=== PATIENT | female | born 1960 | race Caucasian/White ===

== ENCOUNTER 2021-09-07 21:57 | Emergency (ER) | payer OTHER, MEDICAID ==
[~2021-09-07] VITALS: Ht 149.9 cm; Wt 86.2 kg
[2021-09-07] MEDS ORDERED: SODIUM CHLORIDE 0.9% 1,000 ML IV ONE (22:45)
[2021-09-07] MEDS ORDERED: METOCLOPRAMIDE HCL 5MG/ml INJ 2ml VIAL IV ONE (22:45)
[2021-09-07] MEDS ORDERED: MECLIZINE HCL 25 MG TAB PO ONE (22:45)
[2021-09-07 23:25] VITALS: BP 125/75
[2021-09-07 23:33] LABS: Albumin 4.1 g/dL (3.4-5.0); Calcium 9.1 mg/dL (8.5-10.1); Potassium 4.5 mmol/L (3.5-5.1)
[2021-09-07 23:37] LABS: BUN/Creatinine Ratio 25.1; Bilirubin, Total 0.6 mg/dL (0.2-1.0); Total Protein 7.6 g/dL (6.4-8.2)
[2021-09-07 23:51] LABS: Basophils # (auto) 0.1 10 ^3/uL (0-0.2); Eosinophils # (auto) 0 10 ^3/uL (0-0.8); Hemoglobin 12.7 g/dL (12.2-16.2)
[2021-09-07 23:53] LABS: Basophils % (auto) 0.7 % (0.0-2.0); Eosinophils % (auto) 0.2 % (0.0-7.0); Hematocrit 39.2 % (36.0-46.0); Lymphocytes # (auto) 1.1 10 ^3/uL (0.4-5.4); Mean Corpuscular Hemoglobin 26.8 pg (28.0-32.0); Mean Corpuscular Hgb Conc. 32.4 g/dL (32.0-36.0); Mean Corpuscular Volume 82.6 fL (80.0-100.0); Monocytes % (auto) 8.9 % (0.0-12.0); Neutrophils # (auto) 9.6 10 ^3/uL (1.6-8.6); Neutrophils % (auto) 81.2 % (37.0-80.0); Red Blood Cells 4.74 10^6/uL (4.0-5.20); Red Cell Distribution Width 16.3 % (11.8-14.3); White Blood Cell 11.8 10^3/uL (4.4-10.8)
== END 2021-09-08 03:32 | disposition home or self-care (01) ==
LOC: EDBD 21:57 → ER 21:58
DX: R42 Dizziness and giddiness (principal); J44.9 Chronic obstructive pulmonary disease, unspecified; I10 Essential (primary) hypertension
CPT/HCPCS: 36415; 70450; 80053; 85025; 96361; 96374; 99284; J2765; J7030; J8597

== ENCOUNTER 2022-04-10 12:26 | Emergency (ER) | payer OTHER, MEDICAID ==
[~2022-04-10] VITALS: Ht 149.9 cm; Wt 84.4 kg
[2022-04-10 12:40] VITALS: BP 117/60
[2022-04-10] MEDS ORDERED: KETOROLAC TROMETH 60MG/2ML VIAL IM ONE (14:00)
[2022-04-10] MEDS ORDERED: BACL5TAB2 PO (17:33)
== END 2022-04-10 21:56 | disposition home or self-care (01) ==
LOC: ER 12:26
DX: M47.816 Spondylosis without myelopathy or radiculopathy, lumbar region (principal); M25.569 Pain in unspecified knee; J44.9 Chronic obstructive pulmonary disease, unspecified; I10 Essential (primary) hypertension; Z88.2 Allergy status to sulfonamides
CPT/HCPCS: 73562; 96372; 99283; J1885

== ENCOUNTER 2022-04-11 14:29 | Emergency (ER) | payer OTHER, MEDICAID ==
[~2022-04-11] VITALS: Ht 157.5 cm; Wt 90.7 kg
[~2022-04-11 14:29] MED LIST: BACL5TAB2 PO
[2022-04-11] MEDS ORDERED: HYDROcodone-ACET 10/325MG TAB PO ONE (14:45)
[2022-04-11 15:16] VITALS: BP 108/54
[2022-04-11 15:31] LABS: Basophils # (auto) 0.1 10 ^3/uL (0-0.2); Eosinophils # (auto) 0.3 10 ^3/uL (0-0.8); Monocytes # (auto) 0.5 10 ^3/uL (0-1.3); Neutrophils # (auto) 6.4 10 ^3/uL (1.6-8.6); Nucleated Red Blood Cells % 0.1 %
[2022-04-11 15:33] LABS: Eosinophils % (auto) 3.4 % (0.0-7.0); Hematocrit 38.1 % (36.0-46.0); Hemoglobin 12.5 g/dL (12.2-16.2); Lymphocytes % (auto) 12.3 % (10.0-50.0); Mean Corpuscular Hemoglobin 27.2 pg (28.0-32.0); Mean Corpuscular Hgb Conc. 32.8 g/dL (32.0-36.0); Mean Corpuscular Volume 82.7 fL (80.0-100.0); Monocytes % (auto) 5.8 % (0.0-12.0); Neutrophils % (auto) 77.5 % (37.0-80.0); Red Blood Cells 4.61 10^6/uL (4.0-5.20); Red Cell Distribution Width 14.1 % (11.8-14.3); White Blood Cell 8.3 10^3/uL (4.4-10.8)
[2022-04-11 15:35] LABS: Albumin 3.9 g/dL (3.4-5.0); BUN/Creatinine Ratio 25.2; Calcium 8.7 mg/dL (8.5-10.1); Potassium 3.6 mmol/L (3.5-5.1)
[2022-04-11 15:38] LABS: Bilirubin, Total 0.3 mg/dL (0.2-1.0); Total Protein 7.2 g/dL (6.4-8.2)
== END 2022-04-12 19:13 | disposition home or self-care (01) ==
LOC: EDUNIT# 14:29 → ER 14:29 → EDBD 14:29 → ER 04-12 19:13
DX: R42 Dizziness and giddiness (principal); G89.4 Chronic pain syndrome; J44.9 Chronic obstructive pulmonary disease, unspecified; Z88.2 Allergy status to sulfonamides
CPT/HCPCS: 36415; 80053; 85025; 93005

== ENCOUNTER 2022-04-20 15:41 | Emergency (ER) | payer OTHER, MEDICAID ==
[2022-04-20] MEDS ORDERED: CEPH-509 PO (16:35)
[2022-04-20] MEDS ORDERED: METR500T PO (16:35)
[2022-04-20 16:42] LABS: Basophils # (auto) 0.1 10 ^3/uL (0-0.2); Eosinophils # (auto) 0.1 10 ^3/uL (0-0.8); Hemoglobin 11.4 g/dL (12.2-16.2); Lymphocytes # (auto) 1.9 10 ^3/uL (0.4-5.4); Monocytes # (auto) 0.8 10 ^3/uL (0-1.3); Neutrophils # (auto) 8.5 10 ^3/uL (1.6-8.6); White Blood Cell 11.4 10^3/uL (4.4-10.8)
[2022-04-20 16:43] LABS: Basophils % (auto) 1.1 % (0.0-2.0); Eosinophils % (auto) 0.7 % (0.0-7.0); Hematocrit 35.9 % (36.0-46.0); Lymphocytes % (auto) 16.9 % (10.0-50.0); Mean Corpuscular Hemoglobin 26.7 pg (28.0-32.0); Mean Corpuscular Hgb Conc. 31.8 g/dL (32.0-36.0); Mean Corpuscular Volume 84.1 fL (80.0-100.0); Monocytes % (auto) 6.8 % (0.0-12.0); Neutrophils % (auto) 74.5 % (37.0-80.0); Red Blood Cells 4.26 10^6/uL (4.0-5.20); Red Cell Distribution Width 13.8 % (11.8-14.3)
[2022-04-20 16:54] LABS: Albumin 3.7 g/dL (3.4-5.0); Calcium 9.3 mg/dL (8.5-10.1)
[2022-04-20 16:57] LABS: INR 0.94 (0.9-1.15); Partial Thromboplastin Time 23.1 sec (24.6-33.4)
[2022-04-20 16:58] LABS: BUN/Creatinine Ratio 29.4; Bilirubin, Total 0.5 mg/dL (0.2-1.0); Total Protein 7.1 g/dL (6.4-8.2)
[2022-04-20 18:07] VITALS: BP 108/53
== END 2022-04-20 18:10 | disposition home or self-care (01) ==
LOC: ER 15:41
DX: K52.9 Noninfective gastroenteritis and colitis, unspecified (principal); K42.9 Umbilical hernia without obstruction or gangrene; J44.9 Chronic obstructive pulmonary disease, unspecified; I10 Essential (primary) hypertension; Z88.2 Allergy status to sulfonamides; Z90.710 Acquired absence of both cervix and uterus
CPT/HCPCS: 36415; 74176; 80053; 84484; 85025; 85610; 85730; 93005

== ENCOUNTER 2022-05-09 10:55 | Emergency (ER) | payer OTHER, MEDICAID ==
[~2022-05-09] VITALS: Ht 149.9 cm; Wt 78.1 kg
[~2022-05-09 10:55] MED LIST changes: +CEPH-509 PO; +METR500T PO
[2022-05-09 11:59] LABS: Eosinophils # (auto) 0 10 ^3/uL (0-0.8); Lymphocytes # (auto) 1.5 10 ^3/uL (0.4-5.4); Mean Corpuscular Hgb Conc. 31.9 g/dL (32.0-36.0); Monocytes # (auto) 0.9 10 ^3/uL (0-1.3)
[2022-05-09 12:01] LABS: Basophils # (auto) 0 10 ^3/uL (0-0.2); Basophils % (auto) 0.4 % (0.0-2.0); Eosinophils % (auto) 0.1 % (0.0-7.0); Hematocrit 40.3 % (36.0-46.0); Hemoglobin 12.9 g/dL (12.2-16.2); Lymphocytes % (auto) 12.6 % (10.0-50.0); Mean Corpuscular Hemoglobin 26.7 pg (28.0-32.0); Mean Corpuscular Volume 83.6 fL (80.0-100.0); Monocytes % (auto) 7.4 % (0.0-12.0); Neutrophils # (auto) 9.8 10 ^3/uL (1.6-8.6); Neutrophils % (auto) 79.5 % (37.0-80.0); Red Blood Cells 4.82 10^6/uL (4.0-5.20); Red Cell Distribution Width 14.5 % (11.8-14.3); White Blood Cell 12.3 10^3/uL (4.4-10.8)
[2022-05-09 12:21] LABS: Albumin 3.8 g/dL (3.4-5.0); Calcium 9.2 mg/dL (8.5-10.1); Potassium 3.5 mmol/L (3.5-5.1)
[2022-05-09 12:24] LABS: BUN/Creatinine Ratio 36.9; Bilirubin, Total 0.6 mg/dL (0.2-1.0); Total Protein 7.3 g/dL (6.4-8.2)
[2022-05-09] MEDS ORDERED: CEPH-509 PO (13:29)
[2022-05-09] MEDS ORDERED: SODIUM CHLORIDE 0.9% 1,000 ML IV ONE ×2 (13:45)
[2022-05-09 14:24] LABS: Urine Bacteria NONE SEEN /hpf (None Seen); Urine Blood Negative /uL (Negative); Urine Hyaline Cast MOD /lpf (0 - 2); Urine Mucus FEW (None Seen); Urine Specific Gravity 1.031 (1.001-1.035); Urine WBC 25 /hpf (0 - 5)
[2022-05-09 14:36] VITALS: BP 130/66
== END 2022-05-09 15:05 | disposition home or self-care (01) ==
LOC: ER 10:55
DX: K64.9 Unspecified hemorrhoids (principal); E86.0 Dehydration; D72.829 Elevated white blood cell count, unspecified; I10 Essential (primary) hypertension; R07.89 Other chest pain; J44.9 Chronic obstructive pulmonary disease, unspecified; Z90.49 Acquired absence of other specified parts of digestive tract; Z90.710 Acquired absence of both cervix and uterus; Z79.899 Other long term (current) drug therapy; Z88.2 Allergy status to sulfonamides
CPT/HCPCS: 36415; 71045; 74176; 80053; 81001; 84484; 85025; 93005; 99285; J7030

== ENCOUNTER 2022-07-09 12:13 | Emergency (ER) | payer OTHER, MEDICAID ==
[~2022-07-09] VITALS: Ht 149.9 cm; Wt 78.0 kg
[~2022-07-09 12:13] MED LIST changes: -AMOX500T86 PO; -ONDA-144 PO
[2022-07-09 13:11] VITALS: BP 131/91
[2022-07-09] MEDS ORDERED: TETANUS-DIPTH-ACEL PERTUSSIS 0.5ML SYR Tdap IM ONE (13:30)
[2022-07-09] MEDS ORDERED: AMOX500T86 PO (13:42)
[2022-07-13] MEDS ORDERED: ONDA-144 PO (03:12)
== END 2022-07-09 13:56 | disposition home or self-care (01) ==
LOC: EDBD 12:13 → ER 12:13
DX: S00.03XA Contusion of scalp, initial encounter (principal); J44.9 Chronic obstructive pulmonary disease, unspecified; I10 Essential (primary) hypertension; Z90.710 Acquired absence of both cervix and uterus; Z88.1 Allergy status to other antibiotic agents; Z88.2 Allergy status to sulfonamides; Y04.1XXA Assault by human bite, initial encounter; Y93.89 Activity, other specified; Y92.89 Other specified places as the place of occurrence of the external cause; Y99.8 Other external cause status
CPT/HCPCS: 90471; 90715

== ENCOUNTER → 2022-07-09 | Emergency (ER) | payer OTHER, MEDICAID ==
[~2022-07-09] MED LIST changes: +AMOX500T86 PO; +ONDA-144 PO
== END | disposition left against medical advice (07) ==
LOC: ER 14:09
DX: M79.10 Myalgia, unspecified site (principal); Z53.21 Procedure and treatment not carried out due to patient leaving prior to being seen by health care provider

== ENCOUNTER 2022-07-20 08:54 | Emergency (ER) | payer OTHER, MEDICAID ==
[~2022-07-20] VITALS: Ht 149.9 cm; Wt 70.9 kg
[~2022-07-20 08:54] MED LIST changes: +AMOX500T86 PO; +ONDA-144 PO
[2022-07-20 09:41] LABS: Basophils # (auto) 0 10 ^3/uL (0-0.2); Basophils % (auto) 0.9 % (0.0-2.0); Hemoglobin 13.3 g/dL (12.2-16.2); Lymphocytes # (auto) 0.8 10 ^3/uL (0.4-5.4); Monocytes # (auto) 0.4 10 ^3/uL (0-1.3); Nucleated Red Blood Cells % 0.1 %
[2022-07-20 09:42] LABS: Eosinophils # (auto) 0 10 ^3/uL (0-0.8); Eosinophils % (auto) 0.5 % (0.0-7.0); Hematocrit 39.7 % (36.0-46.0); Lymphocytes % (auto) 14.7 % (10.0-50.0); Mean Corpuscular Hemoglobin 26.7 pg (28.0-32.0); Mean Corpuscular Hgb Conc. 33.6 g/dL (32.0-36.0); Mean Corpuscular Volume 79.5 fL (80.0-100.0); Monocytes % (auto) 8.4 % (0.0-12.0); Neutrophils # (auto) 3.9 10 ^3/uL (1.6-8.6); Neutrophils % (auto) 75.5 % (37.0-80.0); Red Blood Cells 4.99 10^6/uL (4.0-5.20); Red Cell Distribution Width 14.8 % (11.8-14.3); White Blood Cell 5.2 10^3/uL (4.4-10.8)
[2022-07-20 09:58] LABS: Albumin 3.1 g/dL (3.4-5.0); Calcium 9.3 mg/dL (8.5-10.1); Potassium 3.4 mmol/L (3.5-5.1)
[2022-07-20 10:01] LABS: BUN/Creatinine Ratio 16.9; Bilirubin, Total 0.6 mg/dL (0.2-1.0); Total Protein 6.7 g/dL (6.4-8.2)
[2022-07-20] MEDS ORDERED: MORPHINE SULFATE INJ 2 MG/ml SYRG IV ONE (11:15)
[2022-07-20] MEDS ORDERED: METOCLOPRAMIDE HCL 5MG/ml INJ 2ml VIAL IV ONE (11:15)
[2022-07-20] MEDS ORDERED: LORA-655 PO (14:48)
[2022-07-20] MEDS: POTASSIUM EFFERVESENT TAB 25 MEQ PO ONE ×2 (14:55→15:02)
[2022-07-20] MEDS ORDERED: POTASSIUM CHL 20 Meq TABLET PO ONE (15:15)
[2022-07-20 15:20] VITALS: BP 98/71
== END 2022-07-20 15:34 | disposition home or self-care (01) ==
LOC: ER 08:54
DX: F41.8 Other specified anxiety disorders (principal); E87.6 Hypokalemia; F19.239 Other psychoactive substance dependence with withdrawal, unspecified; E46 Unspecified protein-calorie malnutrition; I12.9 Hypertensive chronic kidney disease with stage 1 through stage 4 chronic kidney disease, or unspecified chronic kidney disease; N18.9 Chronic kidney disease, unspecified; E78.5 Hyperlipidemia, unspecified; J45.909 Unspecified asthma, uncomplicated; Z68.31 Body mass index [BMI] 31.0-31.9, adult
CPT/HCPCS: 36415; 80053; 82962; 84484; 85025; 93005; 96374; 96375; 99284; J2270; J2765

== ENCOUNTER 2022-09-23 04:25 | Emergency (ER) | payer OTHER, MEDICAID ==
[~2022-09-23] VITALS: Ht 149.9 cm; Wt 67.9 kg
[~2022-09-23 04:25] MED LIST changes: +LORA-655 PO
[2022-09-23 04:30] VITALS: BP 143/76
[2022-09-23] MEDS ORDERED: KETOROLAC TROMETH 30 MG/ML 1ML VIAL IM ONE (07:45)
[2022-09-23 08:04] LABS: Basophils # (auto) 0.1 10 ^3/uL (0-0.2); Basophils % (auto) 0.8 % (0.0-2.0); Eosinophils # (auto) 0.1 10 ^3/uL (0-0.8); Eosinophils % (auto) 1.6 % (0.0-7.0); Lymphocytes # (auto) 1.2 10 ^3/uL (0.4-5.4); Monocytes # (auto) 0.3 10 ^3/uL (0-1.3); Nucleated Red Blood Cells % 0.1 %
[2022-09-23 08:05] LABS: Hematocrit 39.2 % (36.0-46.0); Hemoglobin 12.9 g/dL (12.2-16.2); Lymphocytes % (auto) 17.8 % (10.0-50.0); Mean Corpuscular Hemoglobin 26.7 pg (28.0-32.0); Mean Corpuscular Hgb Conc. 32.9 g/dL (32.0-36.0); Neutrophils # (auto) 4.9 10 ^3/uL (1.6-8.6); Neutrophils % (auto) 74.8 % (37.0-80.0); Red Blood Cells 4.84 10^6/uL (4.0-5.20); Red Cell Distribution Width 17.4 % (11.8-14.3); White Blood Cell 6.6 10^3/uL (4.4-10.8)
[2022-09-23 08:19] LABS: Albumin 3.7 g/dL (3.4-5.0); BUN/Creatinine Ratio 25.3; Calcium 9.4 mg/dL (8.5-10.1); Potassium 3.6 mmol/L (3.5-5.1)
[2022-09-23 08:21] LABS: Bilirubin, Total 0.3 mg/dL (0.2-1.0); Total Protein 6.9 g/dL (6.4-8.2)
[2022-09-23] MEDS ORDERED: ACETAMINOPHEN/CODEINE#3 (300/30mg) TAB PO ONE (09:00)
== END 2022-09-23 09:15 | disposition home or self-care (01) ==
LOC: ER 04:25
DX: S83.92XA Sprain of unspecified site of left knee, initial encounter (principal); G62.9 Polyneuropathy, unspecified; J45.909 Unspecified asthma, uncomplicated; E78.5 Hyperlipidemia, unspecified; I10 Essential (primary) hypertension; Z79.899 Other long term (current) drug therapy; Z88.2 Allergy status to sulfonamides; X58.XXXA Exposure to other specified factors, initial encounter; Y93.89 Activity, other specified; Y92.89 Other specified places as the place of occurrence of the external cause; Y99.8 Other external cause status
CPT/HCPCS: 36415; 73562; 80053; 85025; 93970; 96372; 99285; J1885

== ENCOUNTER 2022-10-05 10:19 | Emergency (ER) | payer OTHER, MEDICAID ==
[~2022-10-05] VITALS: Ht 149.9 cm; Wt 68.5 kg
[2022-10-05 11:21] VITALS: BP 145/60
[2022-10-05] MEDS ORDERED: PRED20TA2 PO (11:27)
[2022-10-05] MEDS ORDERED: AZIT250T8 PO (11:27)
[2022-10-05] MEDS ORDERED: IPRATROPIUM BROM 0.5 MG/2.5ML INH SOL NEB ONE (11:30)
[2022-10-05] MEDS ORDERED: methylPREDNISolone SOD SUCC 125 MG/2 ML VL IM ONE (11:30)
[2022-10-05] MEDS ORDERED: ALBUTEROL SULF 2.5 MG/0.5ML(0.5%) NEB SOLN NEB ONE (11:30)
[2022-10-05] MEDS ORDERED: ALBUTEROL MEDNEB 2.5 mg/3ml NEB ONE (11:40)
== END 2022-10-05 12:04 | disposition home or self-care (01) ==
LOC: ER 10:19
DX: J45.901 Unspecified asthma with (acute) exacerbation (principal); I12.9 Hypertensive chronic kidney disease with stage 1 through stage 4 chronic kidney disease, or unspecified chronic kidney disease; N18.9 Chronic kidney disease, unspecified; E78.5 Hyperlipidemia, unspecified
CPT/HCPCS: 71046; 94640; 96372; 99283; J2930; J7644

== ENCOUNTER 2022-11-18 12:03 | Inpatient (IN) | payer OTHER, MEDICAID ==
[~2022-11-18] VITALS: Ht 149.9 cm; Wt 69.4 kg
[~2022-11-18 12:03] MED LIST changes: +AZIT250T8 PO; +PRED20TA2 PO
[2022-11-18 13:16] LABS: Urine WBC None Seen /hpf (0 - 5)
[2022-11-18 13:37] LABS: Urine Bacteria NONE SEEN /hpf (None Seen); Urine Blood Negative /uL (Negative); Urine Specific Gravity 1.023 (1.001-1.035)
[2022-11-18 13:51] LABS: Basophils # (auto) 0.1 10 ^3/uL (0-0.2); Eosinophils # (auto) 0.1 10 ^3/uL (0-0.8); Monocytes # (auto) 0.5 10 ^3/uL (0-1.3); Neutrophils # (auto) 4.6 10 ^3/uL (1.6-8.6); Neutrophils % (auto) 73.1 % (37.0-80.0); White Blood Cell 6.3 10^3/uL (4.4-10.8)
[2022-11-18 13:53] LABS: Basophils % (auto) 1.1 % (0.0-2.0); Eosinophils % (auto) 1.9 % (0.0-7.0); Hematocrit 43.4 % (36.0-46.0); Hemoglobin 14.3 g/dL (12.2-16.2); Lymphocytes % (auto) 16.3 % (10.0-50.0); Mean Corpuscular Hemoglobin 25.4 pg (28.0-32.0); Mean Corpuscular Volume 77.1 fL (80.0-100.0); Monocytes % (auto) 7.6 % (0.0-12.0); Nucleated Red Blood Cells % 0.1 %; Red Blood Cells 5.63 10^6/uL (4.0-5.20); Red Cell Distribution Width 16.4 % (11.8-14.3)
[2022-11-18 13:57] LABS: INR 0.99 (0.9-1.15); Partial Thromboplastin Time 29.6 sec (24.6-33.4)
[2022-11-18 14:06] LABS: Calcium 9.4 mg/dL (8.5-10.1); Magnesium 2.1 mg/dL (1.6-2.6); Potassium 3.6 mmol/L (3.5-5.1)
[2022-11-18 14:10] LABS: BUN/Creatinine Ratio 37.1; Bilirubin, Total 1.1 mg/dL (0.2-1.0); Total Protein 7.4 g/dL (6.4-8.2)
[2022-11-18] MEDS ORDERED: NITROGLYCERIN 0.4 MG SL TAB SL PRN (16:45)
[2022-11-18] MEDS ORDERED: ONDANSETRON HCL 4 MG/2 ML VIAL IV PRN (16:45)
[2022-11-18] MEDS ORDERED: DOCUSATE SOD 100 MG CAP PO PRN (16:45)
[2022-11-18] MEDS ORDERED: MORPHINE SULFATE INJ 2 MG/ml SYRG IV PRN (16:45)
[2022-11-18] MEDS ORDERED: ACETAMINOPHEN 325 MG TAB PO PRN (16:45)
[2022-11-18] MEDS: HYDROcodone-ACET 5/325MG TAB PO PRN ×2 (18:24→22:41)
[2022-11-19] MEDS: HYDROcodone-ACET 5/325MG TAB PO PRN ×2 (03:20→08:51)
[2022-11-19 05:13] LABS: Basophils # (auto) 0.1 10 ^3/uL (0-0.2); Basophils % (auto) 1.2 % (0.0-2.0); Eosinophils # (auto) 0.2 10 ^3/uL (0-0.8); Eosinophils % (auto) 3.9 % (0.0-7.0); Hematocrit 38.5 % (36.0-46.0); Hemoglobin 12.7 g/dL (12.2-16.2); Lymphocytes # (auto) 1.4 10 ^3/uL (0.4-5.4); Lymphocytes % (auto) 29.3 % (10.0-50.0); Mean Corpuscular Hemoglobin 25.4 pg (28.0-32.0); Mean Corpuscular Hgb Conc. 32.9 g/dL (32.0-36.0); Mean Corpuscular Volume 77.3 fL (80.0-100.0); Monocytes # (auto) 0.5 10 ^3/uL (0-1.3); Monocytes % (auto) 10.6 % (0.0-12.0); Neutrophils # (auto) 2.7 10 ^3/uL (1.6-8.6); Red Blood Cells 4.98 10^6/uL (4.0-5.20); Red Cell Distribution Width 16.1 % (11.8-14.3); White Blood Cell 4.9 10^3/uL (4.4-10.8)
[2022-11-19 05:25] LABS: Albumin 3.2 g/dL (3.4-5.0); Calcium 8.7 mg/dL (8.5-10.1); Potassium 3.4 mmol/L (3.5-5.1)
[2022-11-19 05:28] LABS: BUN/Creatinine Ratio 31.2
[2022-11-19 05:30] LABS: Bilirubin, Total 0.9 mg/dL (0.2-1.0); Total Protein 6.5 g/dL (6.4-8.2)
[2022-11-19 08:00] VITALS: BP 121/72
[2022-11-19] MEDS ORDERED: POTASSIUM CHL 20 Meq TABLET PO ONE (08:00)
[2022-11-19] MEDS ORDERED: PANTOPRAZOLE 40 MG TAB PO SCH (10:00)
[2022-11-19] MEDS ORDERED: GABAPENTIN 300 MG CAP PO SCH (10:00)
[2022-11-19] MEDS ORDERED: ENOXAPARIN SOD 40 MG/0.4 ML SYRINGE SC SCH (10:00)
== END 2022-11-19 09:50 | disposition left against medical advice (07) | DRG 696 ==
LOC: ER 12:03 → TELE 16:38
PROVIDERS: ADMIT Nurse Practitioner; ATTEND Nurse Practitioner
DX: R33.9 Retention of urine, unspecified (principal); N31.9 Neuromuscular dysfunction of bladder, unspecified; I10 Essential (primary) hypertension; E66.01 Morbid (severe) obesity due to excess calories; F41.9 Anxiety disorder, unspecified; J45.909 Unspecified asthma, uncomplicated; Z53.29 Procedure and treatment not carried out because of patient's decision for other reasons; M19.90 Unspecified osteoarthritis, unspecified site; Z20.822 Contact with and (suspected) exposure to COVID-19; Z68.30 Body mass index [BMI] 30.0-30.9, adult; Z88.2 Allergy status to sulfonamides
CPT/HCPCS: 36415; 71045; 74176; 80053; 81001; 83605; 83690; 83735; 84484; 85025; 85610; 85730; 87426; G0378

== ENCOUNTER 2023-02-06 13:34 | Emergency (ER) | payer OTHER, MEDICAID ==
[~2023-02-06] VITALS: Ht 149.9 cm; Wt 60.0 kg
[~2023-02-06 13:34] MED LIST changes: +APIX5TAB PO; +ATOR40TA52 PO; +CEPH-510 PO; +ESCI-34 PO; +FERR-20 PO; +GABA300C10 PO; +HYDR25TA4 PO; +MIDO5TAB22 PO; +MONT-8 PO; +NITR-87 PO; +PANT1INJ3 PO; +PRAM2.25 PO; +TRAZ100T3 PO; +VALB80CA PO
[2023-02-06] MEDS ORDERED: VANCOMYCIN PER PHARMACY 1,000 MG IV SCH (14:15)
[2023-02-06] MEDS ORDERED: VANCOMYCIN 1GM/250ML 250 ML IV ONE (14:21)
[2023-02-06 15:17] LABS: Hematocrit 33.6 % (36.0-46.0); Mean Corpuscular Hemoglobin 26.5 pg (28.0-32.0); Mean Corpuscular Hgb Conc. 32.8 g/dL (32.0-36.0); Mean Corpuscular Volume 80.7 fL (80.0-100.0); Red Blood Cells 4.16 10^6/uL (4.0-5.20); Red Cell Distribution Width 15.3 % (11.8-14.3); White Blood Cell 9.3 10^3/uL (4.4-10.8)
[2023-02-06 15:20] LABS: Albumin 3.2 g/dL (3.4-5.0); Calcium 9.4 mg/dL (8.5-10.1)
[2023-02-06 15:26] LABS: BUN/Creatinine Ratio 24.1 (10.0-20.0); Bilirubin, Total 1.7 mg/dL (0.2-1.0); Total Protein 6.6 g/dL (6.4-8.2)
[2023-02-06 15:41] LABS: Basophils % (manual) 0 (0.0-2.0); Blast Cells 0; Eosinophils % (manual) 0 (0-7); Metamyelocytes % 0; Myelocytes % 0; Promyelocytes % 0; Reactive Lymphocytes 0
[2023-02-06] MEDS ORDERED: POTASSIUM EFFERVESENT TAB 25 MEQ PO ONE (16:45)
[2023-02-06 16:52] LABS: Band Neutrophils % (manual) 2; Lymphocytes % (manual) 16 (10.0-50.0); Monocytes % (manual) 2 (0-12)
[2023-02-06] MEDS: ACETAMINOPHEN 500 MG TAB PO ONE ×2 (18:40→18:41)
[2023-02-06] MEDS ORDERED: MORPHINE SULFATE INJ 2 MG/ml SYRG IM ONE (20:00)
[2023-02-06] MEDS ORDERED: VANCOMYCIN PER PHARMACY 0 MG IV SCH (21:30)
[2023-02-06] MEDS ORDERED: PIPERACILLIN-TAZOB 3.375GM 100 ML IV ONE (21:30)
[2023-02-06] MEDS: VANCOMYCIN 1GM/250ML 250 ML IV ONE (21:38)
[2023-02-06] MEDS ORDERED: PIPERACILLIN-TAZO 4.5GM 100 ML IV SCH (22:00)
[2023-02-07] MEDS ORDERED: VANCOMYCIN 1GM/250ML 250 ML IV ONE (02:47)
[2023-02-07] MEDS: VANCOMYCIN 1GM/250ML 250 ML IV ONE (02:51)
[2023-02-07] MEDS ORDERED: PIPERACILLIN-TAZO 4.5GM 100 ML IV ONE (03:00)
[2023-02-07] MEDS ORDERED: MORPHINE SULFATE INJ 2 MG/ml SYRG IV ONE ×2 (03:15→08:00)
[2023-02-07] MEDS ORDERED: ONDANSETRON HCL 4 MG/2 ML VIAL IV ONE (08:00)
[2023-02-07 10:31] VITALS: BP 116/61
== END 2023-02-07 11:08 | disposition short-term general hospital (02) ==
LOC: ER 13:34
DX: M25.461 Effusion, right knee (principal); M25.561 Pain in right knee; J45.909 Unspecified asthma, uncomplicated; I12.9 Hypertensive chronic kidney disease with stage 1 through stage 4 chronic kidney disease, or unspecified chronic kidney disease; N18.9 Chronic kidney disease, unspecified; E78.5 Hyperlipidemia, unspecified; Z88.2 Allergy status to sulfonamides
CPT/HCPCS: 36415; 71045; 73562; 80053; 82962; 83605; 84484; 85007; 85027; 85652; 86141; 87040; 96365; 96366; 96367; 96372; 96375; 96376; 99285; J2270; J2405; J2543; J3370

== ENCOUNTER 2023-03-08 07:16 | Emergency (ER) | payer OTHER, MEDICAID ==
[~2023-03-08] VITALS: Ht 149.9 cm; Wt 71.4 kg
[~2023-03-08 07:16] MED LIST changes: +AZIT-81 PO; -AZIT250T8 PO; -ESCI-34 PO; +ESCI1TAB37 PO; -FERR-20 PO; +FERR325T24 PO; +GABA-1250 PO; -GABA300C10 PO; +TRAZ-228 PO; -TRAZ100T3 PO
[2023-03-08 07:26] VITALS: BP 122/73
[2023-03-08 08:27] LABS: Urine Bacteria NONE SEEN /hpf (None Seen); Urine Blood Negative /uL (Negative); Urine Mucus FEW (None Seen); Urine WBC 2 /hpf (0 - 5)
== END 2023-03-08 09:43 | disposition home or self-care (01) ==
LOC: ER 07:16
DX: R33.9 Retention of urine, unspecified (principal); I12.9 Hypertensive chronic kidney disease with stage 1 through stage 4 chronic kidney disease, or unspecified chronic kidney disease; N18.9 Chronic kidney disease, unspecified; J45.909 Unspecified asthma, uncomplicated; E78.5 Hyperlipidemia, unspecified; Z88.6 Allergy status to analgesic agent; Z88.1 Allergy status to other antibiotic agents
CPT/HCPCS: 51702; 81001; 93005

== ENCOUNTER 2023-03-08 11:46 | Emergency (ER) | payer OTHER, MEDICAID ==
[~2023-03-08] VITALS: Ht 149.9 cm; Wt 71.4 kg
[2023-03-08 12:39] VITALS: BP 102/70
== END 2023-03-08 13:44 | disposition home or self-care (01) ==
LOC: ER 11:46
DX: J45.909 Unspecified asthma, uncomplicated (principal); I12.9 Hypertensive chronic kidney disease with stage 1 through stage 4 chronic kidney disease, or unspecified chronic kidney disease; N18.9 Chronic kidney disease, unspecified; E78.5 Hyperlipidemia, unspecified; Z46.6 Encounter for fitting and adjustment of urinary device; Z88.2 Allergy status to sulfonamides

== ENCOUNTER 2023-03-20 22:45 | Emergency (ER) | payer OTHER, MEDICAID ==
[~2023-03-20] VITALS: Ht 160 cm; Wt 70.0 kg
[2023-03-20 22:53] VITALS: BP 126/84
[2023-03-21] MEDS ORDERED: PERCOT PO (01:11)
[2023-03-21] MEDS ORDERED: OXYCODONE W/ ACETAMINOPHEN 5/325MG TABLET PO ONE (01:15)
== END 2023-03-21 01:33 | disposition home or self-care (01) ==
LOC: ER 22:45 → EDBD 22:45 → ER 03-21 01:28
DX: M25.561 Pain in right knee (principal); J45.909 Unspecified asthma, uncomplicated; E78.5 Hyperlipidemia, unspecified; I10 Essential (primary) hypertension; Z88.1 Allergy status to other antibiotic agents; Z88.2 Allergy status to sulfonamides
CPT/HCPCS: 73562

== ENCOUNTER 2023-04-09 20:13 | Emergency (ER) | payer OTHER, MEDICAID ==
[~2023-04-09] VITALS: Ht 149.9 cm; Wt 70.0 kg
[~2023-04-09 20:13] MED LIST changes: +PERCOT PO
[2023-04-09 22:57] VITALS: BP 154/88
== END 2023-04-10 00:28 | disposition left against medical advice (07) ==
LOC: EDBD 20:13 → ER 20:13
DX: M79.671 Pain in right foot (principal); Z53.21 Procedure and treatment not carried out due to patient leaving prior to being seen by health care provider; W50.0XXA Accidental hit or strike by another person, initial encounter; Y93.89 Activity, other specified; Y92.89 Other specified places as the place of occurrence of the external cause; Y99.8 Other external cause status
CPT/HCPCS: 73630

== ENCOUNTER 2023-04-13 10:34 | Emergency (ER) | payer OTHER, MEDICAID ==
[~2023-04-13] VITALS: Ht 149.9 cm; Wt 73.6 kg
[2023-04-13] MEDS ORDERED: HYDROcodone-ACET 10/325MG TAB PO ONE (11:15)
[2023-04-13] MEDS ORDERED: KETOROLAC TROMETH 60MG/2ML VIAL IM ONE (11:15)
[2023-04-13 11:43] VITALS: BP 119/62
== END 2023-04-13 12:04 | disposition home or self-care (01) ==
LOC: ER 10:34
DX: S33.5XXD Sprain of ligaments of lumbar spine, subsequent encounter (principal); J45.909 Unspecified asthma, uncomplicated; I10 Essential (primary) hypertension; E78.5 Hyperlipidemia, unspecified; Z88.2 Allergy status to sulfonamides; X58.XXXD Exposure to other specified factors, subsequent encounter
CPT/HCPCS: 96372; 99283; J1885

== ENCOUNTER 2023-04-20 21:29 | Emergency (ER) | payer OTHER, MEDICAID ==
[~2023-04-20] VITALS: Ht 149.9 cm; Wt 68.0 kg
[2023-04-21 02:13] LABS: Basophils # (auto) 0.1 10 ^3/uL (0-0.2); Eosinophils # (auto) 0.1 10 ^3/uL (0-0.8); Monocytes # (auto) 0.7 10 ^3/uL (0-1.3); Monocytes % (auto) 8.3 % (0.0-12.0); White Blood Cell 8.9 10^3/uL (4.4-10.8)
[2023-04-21 02:15] LABS: Basophils % (auto) 0.7 % (0.0-2.0); Eosinophils % (auto) 0.7 % (0.0-7.0); Hematocrit 38.7 % (36.0-46.0); Hemoglobin 12.6 g/dL (12.2-16.2); Lymphocytes # (auto) 1.4 10 ^3/uL (0.4-5.4); Lymphocytes % (auto) 15.7 % (10.0-50.0); Mean Corpuscular Hemoglobin 25.2 pg (28.0-32.0); Mean Corpuscular Hgb Conc. 32.5 g/dL (32.0-36.0); Mean Corpuscular Volume 77.6 fL (80.0-100.0); Neutrophils # (auto) 6.6 10 ^3/uL (1.6-8.6); Neutrophils % (auto) 74.6 % (37.0-80.0); Nucleated Red Blood Cells % 0.3 %; Red Blood Cells 4.99 10^6/uL (4.0-5.20); Red Cell Distribution Width 16.7 % (11.8-14.3)
[2023-04-21 02:32] LABS: Albumin 3.7 g/dL (3.4-5.0); BUN/Creatinine Ratio 38.9 (10.0-20.0); Calcium 9.1 mg/dL (8.5-10.1)
[2023-04-21 02:35] LABS: Bilirubin, Total 0.4 mg/dL (0.2-1.0); Total Protein 7.2 g/dL (6.4-8.2)
[2023-04-21 02:43] LABS: Potassium 2.9 mmol/L (3.5-5.1)
[2023-04-21] MEDS ORDERED: POTASSIUM EFFERVESENT TAB 25 MEQ PO ONE (04:15)
[2023-04-21 04:22] VITALS: BP 125/77; PULSE 78; RESP 18; TEMP 97.6; O2SAT 97
[2023-04-21 07:21] LABS: Urine Bacteria NONE SEEN /hpf (None Seen); Urine Blood Negative /uL (Negative); Urine Specific Gravity 1.026 (1.001-1.035); Urine WBC 5 /hpf (0 - 5)
== END 2023-04-21 07:30 | disposition left against medical advice (07) ==
LOC: ER 21:29
DX: R33.9 Retention of urine, unspecified (principal); Z53.21 Procedure and treatment not carried out due to patient leaving prior to being seen by health care provider
CPT/HCPCS: 36415; 80053; 81001; 85025

== ENCOUNTER 2023-04-26 11:14 | Emergency (ER) | payer OTHER, MEDICAID ==
[~2023-04-26] VITALS: Ht 149.9 cm; Wt 72.0 kg
[~2023-04-26 11:14] MED LIST changes: +ALBU1.258 IN; +BENZ100C97 PO; +LORA10CA PO; +TIOT1AER2 IN
[2023-04-26 12:30] VITALS: BP 128/72; PULSE 82; RESP 16; TEMP 97.5; O2SAT 96
== END 2023-04-26 14:29 | disposition home or self-care (01) ==
LOC: ER 11:14
DX: Z46.6 Encounter for fitting and adjustment of urinary device (principal); J45.909 Unspecified asthma, uncomplicated; E78.5 Hyperlipidemia, unspecified; I10 Essential (primary) hypertension; Z88.2 Allergy status to sulfonamides; Z79.899 Other long term (current) drug therapy

== ENCOUNTER 2023-05-01 21:17 | Emergency (ER) | payer OTHER, MEDICAID ==
[~2023-05-01] VITALS: Ht 121.9 cm; Wt 74.1 kg
[2023-05-02 00:07] VITALS: BP 109/62; PULSE 77; TEMP 98.1
[2023-05-02] MEDS ORDERED: IPRATROPIUM BROM 0.5 MG/2.5ML INH SOL NEB ONE (00:30)
[2023-05-02] MEDS ORDERED: ALBUTEROL SULF 2.5 MG/0.5ML(0.5%) NEB SOLN NEB ONE (00:30)
[2023-05-02] MEDS ORDERED: DexAMETHasone SOD PHOS 10MG/1ML VIAL INJ IM ONE (00:30)
[2023-05-02 00:45] VITALS: RESP 20; O2SAT 97
[2023-05-02] MEDS ORDERED: AZITTAB PO (00:53)
[2023-05-02] MEDS ORDERED: BENZ200C64 PO (00:53)
[2023-05-02] MEDS ORDERED: ALBUAER3 IN (00:53)
[2023-05-02] MEDS ORDERED: PRED20TA2 PO (00:53)
== END 2023-05-02 01:54 | disposition home or self-care (01) ==
LOC: ER 21:17
DX: J45.901 Unspecified asthma with (acute) exacerbation (principal); E78.5 Hyperlipidemia, unspecified; I10 Essential (primary) hypertension
CPT/HCPCS: 71045; 94640; 96372; 99283; J1100; J7644

== ENCOUNTER 2023-05-14 18:39 | Emergency (ER) | payer OTHER, MEDICAID ==
[~2023-05-14] VITALS: Ht 149.9 cm; Wt 72.7 kg
[~2023-05-14 18:39] MED LIST changes: +ALBUAER3 IN; +AZITTAB PO; +BENZ200C64 PO
[2023-05-14 18:49] VITALS: BP 100/62; RESP 16; O2SAT 95
[2023-05-14 18:59] VITALS: PULSE 85
[2023-05-14 19:16] LABS: Basophils # (auto) 0.1 10 ^3/uL (0-0.2); Hematocrit 39.4 % (36.0-46.0); Mean Corpuscular Hemoglobin 24.8 pg (28.0-32.0); Mean Corpuscular Hgb Conc. 32.6 g/dL (32.0-36.0); Nucleated Red Blood Cells % 0.1 %; White Blood Cell 6.6 10^3/uL (4.4-10.8)
[2023-05-14 19:17] LABS: Eosinophils # (auto) 0.1 10 ^3/uL (0-0.8); Eosinophils % (auto) 1.7 % (0.0-7.0); Hemoglobin 12.8 g/dL (12.2-16.2); Lymphocytes # (auto) 0.6 10 ^3/uL (0.4-5.4); Lymphocytes % (auto) 9.2 % (10.0-50.0); Mean Corpuscular Volume 76.1 fL (80.0-100.0); Monocytes # (auto) 0.4 10 ^3/uL (0-1.3); Monocytes % (auto) 6.6 % (0.0-12.0); Neutrophils # (auto) 5.4 10 ^3/uL (1.6-8.6); Neutrophils % (auto) 81.5 % (37.0-80.0); Red Blood Cells 5.18 10^6/uL (4.0-5.20); Red Cell Distribution Width 18.1 % (11.8-14.3)
[2023-05-14 19:27] LABS: Albumin 3.7 g/dL (3.4-5.0); Calcium 9.1 mg/dL (8.5-10.1); Potassium 3.4 mmol/L (3.5-5.1)
[2023-05-14 19:30] LABS: BUN/Creatinine Ratio 21.5 (10.0-20.0); Bilirubin, Total 0.7 mg/dL (0.2-1.0); Total Protein 7.6 g/dL (6.4-8.2)
== END 2023-05-14 22:53 | disposition home or self-care (01) ==
LOC: ER 18:39 → EDBD 18:39 → ER 22:53
DX: F41.9 Anxiety disorder, unspecified (principal); R10.84 Generalized abdominal pain; J45.909 Unspecified asthma, uncomplicated; E78.5 Hyperlipidemia, unspecified; I12.9 Hypertensive chronic kidney disease with stage 1 through stage 4 chronic kidney disease, or unspecified chronic kidney disease; N18.9 Chronic kidney disease, unspecified; Z88.2 Allergy status to sulfonamides; Z79.899 Other long term (current) drug therapy; Z90.49 Acquired absence of other specified parts of digestive tract; Z90.710 Acquired absence of both cervix and uterus; Z98.890 Other specified postprocedural states
CPT/HCPCS: 36415; 74176; 80053; 83690; 85025; 93005

== ENCOUNTER 2023-05-19 13:09 | Emergency (ER) | payer OTHER, MEDICAID ==
[~2023-05-19] VITALS: Ht 149.9 cm; Wt 71.0 kg
[2023-05-19] MEDS ORDERED: SODIUM CHLORIDE 0.9% 1,000 ML IV ONE (13:45)
[2023-05-19 14:09] LABS: Basophils # (auto) 0.1 10 ^3/uL (0-0.2); Basophils % (auto) 1.4 % (0.0-2.0); Eosinophils # (auto) 0.1 10 ^3/uL (0-0.8); Eosinophils % (auto) 1.6 % (0.0-7.0); Hematocrit 42.4 % (36.0-46.0); Lymphocytes # (auto) 0.7 10 ^3/uL (0.4-5.4); Nucleated Red Blood Cells % 0.1 %
[2023-05-19 14:10] LABS: Hemoglobin 13.9 g/dL (12.2-16.2); Lymphocytes % (auto) 11.4 % (10.0-50.0); Mean Corpuscular Hgb Conc. 32.9 g/dL (32.0-36.0); Monocytes # (auto) 0.4 10 ^3/uL (0-1.3); Monocytes % (auto) 6.4 % (0.0-12.0); Neutrophils # (auto) 4.7 10 ^3/uL (1.6-8.6); Neutrophils % (auto) 79.2 % (37.0-80.0); Red Blood Cells 5.58 10^6/uL (4.0-5.20)
[2023-05-19 14:29] LABS: Albumin 3.9 g/dL (3.4-5.0); Calcium 9.3 mg/dL (8.5-10.1); Potassium 3.6 mmol/L (3.5-5.1)
[2023-05-19 14:32] LABS: BUN/Creatinine Ratio 19.3 (10.0-20.0); Bilirubin, Total 1.2 mg/dL (0.2-1.0); Total Protein 7.2 g/dL (6.4-8.2)
[2023-05-19 15:53] VITALS: BP 132/84; PULSE 104; RESP 18; TEMP 99; O2SAT 97
== END 2023-05-19 15:10 | disposition home or self-care (01) ==
LOC: EDBD 13:09 → ER 13:09 → EDUNIT# 13:09 → ER 15:10
DX: T67.5XXA Heat exhaustion, unspecified, initial encounter (principal); I12.9 Hypertensive chronic kidney disease with stage 1 through stage 4 chronic kidney disease, or unspecified chronic kidney disease; N18.9 Chronic kidney disease, unspecified; R07.89 Other chest pain; J45.909 Unspecified asthma, uncomplicated; E78.5 Hyperlipidemia, unspecified; Z90.49 Acquired absence of other specified parts of digestive tract; Z90.710 Acquired absence of both cervix and uterus; X58.XXXA Exposure to other specified factors, initial encounter; Y93.89 Activity, other specified; Y92.89 Other specified places as the place of occurrence of the external cause; Y99.8 Other external cause status
CPT/HCPCS: 36415; 70450; 71045; 80053; 84484; 85025; 96360; 99284; J7030

== ENCOUNTER 2023-05-26 17:21 | Inpatient (IN) | payer OTHER, MEDICAID ==
[~2023-05-26] VITALS: Ht 149.9 cm; Wt 75.6 kg
[2023-05-26] MEDS ORDERED: SODIUM CHLORIDE 0.9% 1,000 ML IV ONE (18:30)
[2023-05-26] MEDS ORDERED: IOHEXOL 300 MG/ML 100ML BOTTLE IJ ONE (19:08)
[2023-05-26 19:18] LABS: Alanine Aminotransferase 18 U/L (7-40); Albumin 4.6 g/dL (3.2-4.8); Alkaline Phosphatase 129 U/L (46-116); Anion Gap 8.3 (5-15); Aspartate Aminotransferase 13 U/L (13-40); BUN/Creatinine Ratio 25.3 (10.0-20.0); Blood Urea Nitrogen 24 mg/dL (9-23); Calcium 9.7 mg/dL (8.5-10.1); Carbon Dioxide 24.7 mmol/L (20-30); Chloride 104 mmol/L (98-107); Glucose 103 mg/dL (74-106); Potassium 3.3 mmol/L (3.5-5.1); Sodium 137 mmol/L (136-145)
[2023-05-26 19:19] LABS: Bilirubin, Total 0.9 mg/dL (0.2-1.0); Total Protein 6.7 g/dL (5.7-8.2)
[2023-05-26 19:34] LABS: Eosinophils # (auto) 0.1 10 ^3/uL (0-0.8); Monocytes # (auto) 0.5 10 ^3/uL (0-1.3)
[2023-05-26 19:37] LABS: Basophils # (auto) 0.1 10 ^3/uL (0-0.2); Basophils % (auto) 1.1 % (0.0-2.0); Eosinophils % (auto) 2.6 % (0.0-7.0); Hematocrit 37.1 % (36.0-46.0); Hemoglobin 12.4 g/dL (12.2-16.2); Lymphocytes # (auto) 0.8 10 ^3/uL (0.4-5.4); Lymphocytes % (auto) 14.2 % (10.0-50.0); Mean Corpuscular Hemoglobin 25.3 pg (28.0-32.0); Mean Corpuscular Hgb Conc. 33.3 g/dL (32.0-36.0); Mean Corpuscular Volume 76.1 fL (80.0-100.0); Monocytes % (auto) 8.6 % (0.0-12.0); Neutrophils % (auto) 73.5 % (37.0-80.0); Nucleated Red Blood Cells % 0.2 %; Red Blood Cells 4.88 10^6/uL (4.0-5.20); Red Cell Distribution Width 17.6 % (11.8-14.3); White Blood Cell 5.4 10^3/uL (4.4-10.8)
[2023-05-26 20:28] LABS: Urine Bacteria FEW /hpf (None Seen); Urine Blood Negative /uL (Negative); Urine Clarity Clear (Clear); Urine Color Yellow (Yellow); Urine Protein, UAD TRACE (Negative); Urine Urobilinogen Normal (Negative); Urine WBC 5 /hpf (0 - 5); Urine pH 5.5 (5.0-8.0)
[2023-05-26] MEDS ORDERED: FUROSEMIDE 40 MG/4 ML VIAL IV ONE (21:00)
[2023-05-26] MEDS ORDERED: PANTOPRAZOLE 40 MG/10 ML VIAL INJ IV ONE (21:00)
[2023-05-26] MEDS ORDERED: ONDANSETRON HCL 4 MG/2 ML VIAL IV PRN (22:30)
[2023-05-26] MEDS ORDERED: TEMAZEPAM 15 MG CAP PO PRN (22:30)
[2023-05-26] MEDS ORDERED: NITROGLYCERIN 0.4 MG SL TAB SL PRN (22:30)
[2023-05-26] MEDS ORDERED: DOCUSATE SOD 100 MG CAP PO PRN (22:30)
[2023-05-26] MEDS ORDERED: ACETAMINOPHEN 325 MG TAB PO PRN (22:30)
[2023-05-26] MEDS ORDERED: MORPHINE SULFATE INJ 2 MG/ml SYRG IV PRN (22:30)
[2023-05-26] MEDS: SODIUM CHLORIDE 0.9% 1,000 ML IV SCH (22:57)
[2023-05-27] MEDS: SODIUM CHLORIDE 0.9% 1,000 ML IV SCH (05:16)
[2023-05-27 05:33] VITALS: PULSE 75; RESP 22; O2SAT 97
[2023-05-27 07:12] LABS: Basophils # (auto) 0.1 10 ^3/uL (0-0.2); Eosinophils # (auto) 0.1 10 ^3/uL (0-0.8); Monocytes # (auto) 0.5 10 ^3/uL (0-1.3); Nucleated Red Blood Cells % 0.1 %
[2023-05-27 07:14] LABS: Basophils % (auto) 1.7 % (0.0-2.0); Eosinophils % (auto) 2.4 % (0.0-7.0); Hematocrit 36.2 % (36.0-46.0); Hemoglobin 12.1 g/dL (12.2-16.2); Lymphocytes # (auto) 0.7 10 ^3/uL (0.4-5.4); Lymphocytes % (auto) 13.7 % (10.0-50.0); Mean Corpuscular Hemoglobin 25.2 pg (28.0-32.0); Mean Corpuscular Hgb Conc. 33.5 g/dL (32.0-36.0); Mean Corpuscular Volume 75.1 fL (80.0-100.0); Monocytes % (auto) 8.4 % (0.0-12.0); Neutrophils % (auto) 73.8 % (37.0-80.0); Red Blood Cells 4.82 10^6/uL (4.0-5.20); Red Cell Distribution Width 17.1 % (11.8-14.3); White Blood Cell 5.4 10^3/uL (4.4-10.8)
[2023-05-27 07:20] LABS: Alanine Aminotransferase 14 U/L (7-40); Albumin 4.5 g/dL (3.2-4.8); Alkaline Phosphatase 126 U/L (46-116); Anion Gap 9.6 (5-15); Aspartate Aminotransferase 12 U/L (13-40); BUN/Creatinine Ratio 17.5 (10.0-20.0); Blood Urea Nitrogen 17 mg/dL (9-23); Calcium 9.5 mg/dL (8.5-10.1); Carbon Dioxide 27.4 mmol/L (20-30); Chloride 102 mmol/L (98-107); Glucose 97 mg/dL (74-106); Potassium 3.2 mmol/L (3.5-5.1); Sodium 139 mmol/L (136-145)
[2023-05-27 07:21] LABS: Bilirubin, Total 1.1 mg/dL (0.2-1.0); Total Protein 6.9 g/dL (5.7-8.2)
[2023-05-27 07:30] VITALS: PULSE 75; RESP 22; O2SAT 97
[2023-05-27] MEDS ORDERED: POTASSIUM CHL 20MEQ/100ML 100 ML IV ONE (08:30)
[2023-05-27] MEDS: MORPHINE SULFATE 4 MG/ML SYR/VIAL IV PRN ×2 (10:15→20:28)
[2023-05-27] MEDS ORDERED: POTASSIUM EFFERVESENT TAB 25 MEQ PO ONE (12:15)
[2023-05-27 20:30] VITALS: PULSE 74; RESP 28; O2SAT 97
[2023-05-27 23:11] VITALS: RESP 18
[2023-05-28 05:00] VITALS: BP 123/78; PULSE 64; RESP 18; TEMP 97.3; O2SAT 95
[2023-05-28] MEDS: MORPHINE SULFATE 4 MG/ML SYR/VIAL IV PRN ×2 (07:16→12:12)
[2023-05-28 08:00] VITALS: PULSE 59; RESP 17; O2SAT 95
[2023-05-28] MEDS: SODIUM CHLORIDE 0.9% 1,000 ML IV SCH (08:22)
[2023-05-28 09:11] VITALS: BP 132/60; PULSE 58; RESP 17; TEMP 97.1; O2SAT 95
[2023-05-28 13:00] VITALS: BP 108/60; PULSE 65; RESP 19; TEMP 97.5; O2SAT 96
[2023-05-28] MEDS ORDERED: Valbenazine Tosylate (Ingrezza) 80 MG PO SCH (18:00)
[2023-05-28] MEDS ORDERED: MONTELUKAST SODIUM 10 MG TAB PO SCH (18:00)
[2023-05-28] MEDS ORDERED: FERROUS SULFATE 325mg EC TAB PO SCH (18:00)
[2023-05-28] MEDS ORDERED: traZODone HCL 50 MG TAB PO SCH (18:00)
[2023-05-28] MEDS ORDERED: MIDODRINE HCL 10 MG TAB PO SCH (22:00)
[2023-05-28] MEDS ORDERED: ATORVASTATIN 20 MG TAB PO SCH (22:00)
[2023-05-28] MEDS ORDERED: GABAPENTIN 300 MG CAP PO SCH (22:00)
[2023-05-29] MEDS ORDERED: HCTZ 25 MG TAB PO SCH (07:00)
[2023-05-29] MEDS ORDERED: CITALOPRAM HYDROBR 20 MG TAB PO SCH (07:00)
[2023-05-29] MEDS ORDERED: PANTOPRAZOLE 40 MG/10 ML VIAL INJ IV SCH (10:00)
[2023-05-29] MEDS ORDERED: PRAMIPEXOLE DIHYDROCHLORIDE PO SCH (10:00)
== END 2023-05-28 15:23 | disposition left against medical advice (07) | DRG 379 ==
LOC: ER 17:21 → TELE 22:27 → TELE-CENTR 05-27 22:32
PROVIDERS: ADMIT Internal Medicine; ATTEND Internal Medicine
DX: K92.2 Gastrointestinal hemorrhage, unspecified (principal); E87.6 Hypokalemia; E78.5 Hyperlipidemia, unspecified; J45.909 Unspecified asthma, uncomplicated; E66.01 Morbid (severe) obesity due to excess calories; I10 Essential (primary) hypertension; Z53.29 Procedure and treatment not carried out because of patient's decision for other reasons; Z96.653 Presence of artificial knee joint, bilateral; Z68.33 Body mass index [BMI] 33.0-33.9, adult; Z79.01 Long term (current) use of anticoagulants; Z90.710 Acquired absence of both cervix and uterus; Z88.2 Allergy status to sulfonamides; Z90.49 Acquired absence of other specified parts of digestive tract; Z86.718 Personal history of other venous thrombosis and embolism
CPT/HCPCS: 36415; 74177; 80053; 81001; 82270; 83605; 84484; 85025; C9113; G0378; J3480

== ENCOUNTER 2023-05-29 23:12 | Emergency (ER) | payer OTHER, MEDICAID ==
[~2023-05-29] VITALS: Ht 167.6 cm; Wt 86.4 kg
[~2023-05-29 23:12] MED LIST changes: -ALBU1.258 IN; -ALBUAER3 IN; -AMOX500T86 PO; -AZIT-81 PO; -AZITTAB PO; -BACL5TAB2 PO; -BENZ100C97 PO; -BENZ200C64 PO; -CEPH-509 PO; -CEPH-510 PO; -LORA-655 PO; -LORA10CA PO; -METR500T PO; -NITR-87 PO; -ONDA-144 PO; -PERCOT PO; -PRED20TA2 PO; -TIOT1AER2 IN
[2023-05-30 00:51] VITALS: BP 134/72; PULSE 88; RESP 17; TEMP 97.7; O2SAT 98
[2023-05-30] MEDS ORDERED: HYDROcodone-ACET 10/325MG TAB PO ONE (02:00)
[2023-05-30] MEDS ORDERED: ONDANSETRON ODT 4 MG TAB PO ONE (02:00)
== END 2023-05-30 02:06 | disposition home or self-care (01) ==
LOC: EDBD 23:12 → EDUNIT# 23:12 → ER 23:12
DX: M79.605 Pain in left leg (principal); M79.604 Pain in right leg; E78.5 Hyperlipidemia, unspecified; J45.909 Unspecified asthma, uncomplicated; I12.9 Hypertensive chronic kidney disease with stage 1 through stage 4 chronic kidney disease, or unspecified chronic kidney disease; N18.9 Chronic kidney disease, unspecified; Z90.49 Acquired absence of other specified parts of digestive tract; Z90.710 Acquired absence of both cervix and uterus; Z98.890 Other specified postprocedural states; Z88.2 Allergy status to sulfonamides; Z79.899 Other long term (current) drug therapy
CPT/HCPCS: 99283; Q0162

== ENCOUNTER 2023-05-30 15:20 | Emergency (ER) | payer OTHER, MEDICAID ==
[~2023-05-30] VITALS: Ht 149.9 cm; Wt 72.7 kg
[2023-05-30] MEDS ORDERED: ACETAMINOPHEN 500 MG TAB PO ONE (16:15)
[2023-05-30 16:42] VITALS: BP 158/97; PULSE 98; RESP 17; TEMP 97.9; O2SAT 96
[2023-05-30] MEDS ORDERED: HYDROcodone-ACET 10/325MG TAB PO ONE (18:30)
== END 2023-05-30 19:08 | disposition home or self-care (01) ==
LOC: EDBD 15:20 → ER 15:20 → EDUNIT# 15:20 → ER 19:08
DX: M54.50 Low back pain, unspecified (principal); I12.9 Hypertensive chronic kidney disease with stage 1 through stage 4 chronic kidney disease, or unspecified chronic kidney disease; N18.9 Chronic kidney disease, unspecified; E78.5 Hyperlipidemia, unspecified; J45.909 Unspecified asthma, uncomplicated; Z90.49 Acquired absence of other specified parts of digestive tract; Z90.710 Acquired absence of both cervix and uterus; Z79.899 Other long term (current) drug therapy; Z88.2 Allergy status to sulfonamides; W01.0XXA Fall on same level from slipping, tripping and stumbling without subsequent striking against object, initial encounter; Y93.89 Activity, other specified; Y92.89 Other specified places as the place of occurrence of the external cause; Y99.8 Other external cause status
CPT/HCPCS: 72070; 72100; 93005

== ENCOUNTER 2023-07-14 17:03 | Inpatient (IN) | payer OTHER, MEDICAID ==
[~2023-07-14] VITALS: Ht 152.4 cm; Wt 84.9 kg
[2023-07-14 17:44] VITALS: PULSE 70; RESP 15; O2SAT 100
[2023-07-14 20:00] VITALS: PULSE 74; RESP 22; O2SAT 97
[2023-07-14] MEDS ORDERED: IOHEXOL 350 MG/ML 100ML IJ ONE (20:16)
[2023-07-14] MEDS ORDERED: LACTATED RINGER'S 1,000 ML IV ONE ×2 (20:30→23:45)
[2023-07-14 21:14] LABS: Basophils # (auto) 0.1 10 ^3/uL (0-0.2); Eosinophils # (auto) 0.3 10 ^3/uL (0-0.8); Eosinophils % (auto) 3.9 % (0.0-7.0); Hemoglobin 11.8 g/dL (12.2-16.2); Monocytes # (auto) 0.5 10 ^3/uL (0-1.3); Monocytes % (auto) 6.3 % (0.0-12.0)
[2023-07-14 21:16] LABS: Basophils % (auto) 1.4 % (0.0-2.0); Hematocrit 35.6 % (36.0-46.0); Lymphocytes % (auto) 14.1 % (10.0-50.0); Mean Corpuscular Hemoglobin 26.2 pg (28.0-32.0); Mean Corpuscular Volume 79.2 fL (80.0-100.0); Neutrophils # (auto) 5.4 10 ^3/uL (1.6-8.6); Neutrophils % (auto) 74.3 % (37.0-80.0); Red Cell Distribution Width 16.6 % (11.8-14.3); White Blood Cell 7.3 10^3/uL (4.4-10.8)
[2023-07-14] MEDS ORDERED: HYDROcodone-ACET 5/325MG TAB PO ONE (21:30)
[2023-07-14 21:44] LABS: Alanine Aminotransferase 16 U/L (7-40); Alkaline Phosphatase 118 U/L (46-116); Calcium 9.7 mg/dL (8.7-10.4)
[2023-07-14 21:45] LABS: Albumin 4.1 g/dL (3.2-4.8); Anion Gap 9 (5-15); Aspartate Aminotransferase 19 U/L (13-40); BUN/Creatinine Ratio 23.3 (10.0-20.0); Bilirubin, Total 0.6 mg/dL (0.2-1.0); Blood Urea Nitrogen 28 mg/dL (9-23); Carbon Dioxide 28 mmol/L (20-30); Chloride 104 mmol/L (98-107); Glucose 94 mg/dL (74-106); Magnesium 1.9 mg/dL (1.6-2.6); Potassium 3.8 mmol/L (3.5-5.1); Sodium 141 mmol/L (136-145); Total Protein 6.5 g/dL (5.7-8.2)
[2023-07-14] MEDS ORDERED: AMLO1TAB22 PO (23:37)
[2023-07-14] MEDS ORDERED: CALCIUM GLUC 1,000mg/50ml-NS 50 ML IV ONE (23:45)
[2023-07-15] MEDS ORDERED: ALBUTEROL SULF 2.5 MG/0.5ML(0.5%) NEB SOLN NEB ONE (00:30)
[2023-07-15] MEDS ORDERED: IPRATROPIUM BROM 0.5 MG/2.5ML INH SOL NEB ONE (00:30)
[2023-07-15] MEDS ORDERED: ALBUMIN 25% 100 ML IV ONE (00:45)
[2023-07-15 02:41] LABS: Urine Bacteria NONE SEEN /hpf (None Seen); Urine Blood Negative /uL (Negative); Urine Clarity Clear (Clear); Urine Color Yellow (Yellow); Urine Hyaline Cast FEW /lpf (0 - 2); Urine Protein, UAD Negative (Negative); Urine Specific Gravity 1.016 (1.001-1.035); Urine Urobilinogen Normal (Negative); Urine WBC 13 /hpf (0 - 5); Urine pH 5.5 (5.0-8.0)
[2023-07-15] MEDS ORDERED: KETOROLAC TROMETH 30 MG/ML 1ML VIAL IV ONE (04:00)
[2023-07-15] MEDS ORDERED: LORazepam 2MG/ML-1ML VIAL IV ONE (04:00)
[2023-07-15] MEDS ORDERED: SODIUM CHLORIDE 0.9% 1,000 ML IV ONE (05:00)
[2023-07-15 05:05] VITALS: PULSE 65; RESP 14; O2SAT 96
[2023-07-15] MEDS ORDERED: NOREPINEPHRINE 8 MG/250ML KIT 250 ML IV ONE (06:03)
[2023-07-15] MEDS: NOREPINEPHRINE 8 MG/250ML KIT 250 ML IV SCH (06:20)
[2023-07-15] MEDS ORDERED: ONDANSETRON HCL 4 MG/2 ML VIAL IV PRN (07:30)
[2023-07-15] MEDS ORDERED: ENOXAPARIN SOD 40 MG/0.4 ML SYRINGE SC SCH (07:30)
[2023-07-15] MEDS ORDERED: MORPHINE SULFATE INJ 2 MG/ml SYRG IV PRN ×2 (07:30)
[2023-07-15] MEDS ORDERED: ACETAMINOPHEN 325 MG TAB PO PRN (07:30)
[2023-07-15] MEDS ORDERED: TEMAZEPAM 15 MG CAP PO PRN (07:30)
[2023-07-15] MEDS ORDERED: DOCUSATE SOD 100 MG CAP PO PRN (07:30)
[2023-07-15] MEDS ORDERED: NITROGLYCERIN 0.4 MG SL TAB SL PRN (07:30)
[2023-07-15 08:42] VITALS: PULSE 73; RESP 16; O2SAT 97
[2023-07-15] MEDS ORDERED: amLODIPine BESYLATE 5 MG TAB PO SCH (10:00)
[2023-07-15] MEDS: SODIUM CHLORIDE 0.9% 1,000 ML IV SCH ×2 (10:26→18:12)
[2023-07-15] MEDS: PANTOPRAZOLE 40 MG/10 ML VIAL INJ IV SCH (12:01)
[2023-07-15] MEDS: GABAPENTIN 300 MG CAP PO SCH ×2 (12:02→22:26)
[2023-07-15] MEDS: cefTRIAXone 1GM/50ML D5W 50 ML IV SCH (12:02)
[2023-07-15] MEDS: APIXABAN 5 MG TAB PO SCH ×2 (12:02→22:26)
[2023-07-15] MEDS: PRAMIPEXOLE DIHYDROCHLORIDE PO SCH (12:09)
[2023-07-15] MEDS: HYDROcodone-ACET 5/325MG TAB PO PRN (14:18)
[2023-07-15] MEDS ORDERED: MONTELUKAST SODIUM 10 MG TAB PO SCH (18:00)
[2023-07-15] MEDS ORDERED: traZODone HCL 50 MG TAB PO SCH (18:00)
[2023-07-15 19:45] VITALS: PULSE 74; RESP 19; O2SAT 94
[2023-07-15] MEDS: ATORVASTATIN 20 MG TAB PO SCH (22:26)
[2023-07-15] MEDS: MONTELUKAST SODIUM 10 MG TAB PO SCH (22:26)
[2023-07-15] MEDS: traZODone HCL 50 MG TAB PO SCH (22:26)
[2023-07-16] VITALS (7 sets, daily range): BP systolic 115–118; BP diastolic 63–68; PULSE 64–86; RESP 18–22; TEMP 97.8–98.1; O2SAT 94–99
[2023-07-16] MEDS: NOREPINEPHRINE 8 MG/250ML KIT 250 ML IV SCH (05:45)
[2023-07-16] MEDS: CITALOPRAM HYDROBR 20 MG TAB PO SCH (07:00)
[2023-07-16] MEDS ORDERED: ALBUTEROL SULF 2.5 MG/0.5ML(0.5%) NEB SOLN ONE (08:53)
[2023-07-16] MEDS: GABAPENTIN 300 MG CAP PO SCH ×2 (10:00→21:27)
[2023-07-16] MEDS: APIXABAN 5 MG TAB PO SCH ×2 (10:00→21:27)
[2023-07-16] MEDS: cefTRIAXone 1GM/50ML D5W 50 ML IV SCH (10:00)
[2023-07-16] MEDS: PANTOPRAZOLE 40 MG/10 ML VIAL INJ IV SCH (10:00)
[2023-07-16] MEDS: PRAMIPEXOLE DIHYDROCHLORIDE PO SCH (10:00)
[2023-07-16] MEDS: SODIUM CHLORIDE 0.9% 1,000 ML IV SCH ×3 (10:30→21:31)
[2023-07-16 11:04] LABS: Basophils # (auto) 0.1 10 ^3/uL (0-0.2); Basophils % (auto) 1.1 % (0.0-2.0); Eosinophils # (auto) 0.5 10 ^3/uL (0-0.8); Eosinophils % (auto) 6.1 % (0.0-7.0); Hematocrit 38.3 % (36.0-46.0); Hemoglobin 12.4 g/dL (12.2-16.2); Lymphocytes % (auto) 13.5 % (10.0-50.0); Mean Corpuscular Hemoglobin 25.9 pg (28.0-32.0); Mean Corpuscular Hgb Conc. 32.3 g/dL (32.0-36.0); Mean Corpuscular Volume 80.2 fL (80.0-100.0); Monocytes # (auto) 0.5 10 ^3/uL (0-1.3); Monocytes % (auto) 6.2 % (0.0-12.0); Neutrophils # (auto) 5.4 10 ^3/uL (1.6-8.6); Neutrophils % (auto) 73.1 % (37.0-80.0); Red Blood Cells 4.77 10^6/uL (4.0-5.20); Red Cell Distribution Width 16.5 % (11.8-14.3); White Blood Cell 7.4 10^3/uL (4.4-10.8)
[2023-07-16 11:20] LABS: Alanine Aminotransferase 17 U/L (7-40); Albumin 3.8 g/dL (3.2-4.8); Alkaline Phosphatase 98 U/L (46-116); Anion Gap 6 (5-15); Aspartate Aminotransferase 16 U/L (13-40); Bilirubin, Total 0.9 mg/dL (0.2-1.0); Blood Urea Nitrogen 15 mg/dL (9-23); Calcium 9.4 mg/dL (8.5-10.1); Carbon Dioxide 27 mmol/L (20-30); Chloride 108 mmol/L (98-107); Glucose 85 mg/dL (74-106); Potassium 4.4 mmol/L (3.5-5.1); Sodium 141 mmol/L (136-145)
[2023-07-16] MEDS: HYDROcodone-ACET 5/325MG TAB PO PRN ×3 (11:50→22:49)
[2023-07-16] MEDS: traZODone HCL 50 MG TAB PO SCH (21:27)
[2023-07-16] MEDS: ATORVASTATIN 20 MG TAB PO SCH (21:27)
[2023-07-16] MEDS: MONTELUKAST SODIUM 10 MG TAB PO SCH (21:27)
[2023-07-16] MEDS: ALBUTEROL SULF 2.5 MG/0.5ML(0.5%) NEB SOLN NEB PRN (23:47)
[2023-07-17] VITALS (10 sets, daily range): BP systolic 111–140; BP diastolic 62–76; PULSE 64–80; RESP 16–20; TEMP 97.9–98.3; O2SAT 94–100
[2023-07-17] MEDS: SODIUM CHLORIDE 0.9% 1,000 ML IV SCH ×2 (01:10→06:36)
[2023-07-17] MEDS: ALBUTEROL SULF 2.5 MG/0.5ML(0.5%) NEB SOLN NEB PRN ×2 (02:14→11:51)
[2023-07-17] MEDS: NOREPINEPHRINE 8 MG/250ML KIT 250 ML IV SCH (05:45)
[2023-07-17] MEDS: CITALOPRAM HYDROBR 20 MG TAB PO SCH (06:35)
[2023-07-17] MEDS: HYDROcodone-ACET 5/325MG TAB PO PRN ×3 (06:39→15:36)
[2023-07-17 06:40] LABS: Alanine Aminotransferase 15 U/L (7-40); Albumin 3.5 g/dL (3.2-4.8); Alkaline Phosphatase 91 U/L (46-116); Anion Gap 8 (5-15); Aspartate Aminotransferase 20 U/L (13-40); BUN/Creatinine Ratio 14.5 (10.0-20.0); Bilirubin, Total 0.5 mg/dL (0.2-1.0); Blood Urea Nitrogen 16 mg/dL (9-23); Carbon Dioxide 25 mmol/L (20-30); Chloride 107 mmol/L (98-107); Glucose 87 mg/dL (74-106); Potassium 4.2 mmol/L (3.5-5.1); Sodium 140 mmol/L (136-145); Total Protein 5.5 g/dL (5.7-8.2)
[2023-07-17 07:36] LABS: Basophils # (auto) 0.1 10 ^3/uL (0-0.2); Eosinophils # (auto) 0.3 10 ^3/uL (0-0.8); Eosinophils % (auto) 6.5 % (0.0-7.0); Hematocrit 33.1 % (36.0-46.0); Hemoglobin 10.7 g/dL (12.2-16.2); Lymphocytes # (auto) 0.7 10 ^3/uL (0.4-5.4); Lymphocytes % (auto) 13.8 % (10.0-50.0); Mean Corpuscular Hemoglobin 25.6 pg (28.0-32.0); Mean Corpuscular Hgb Conc. 32.3 g/dL (32.0-36.0); Mean Corpuscular Volume 79.4 fL (80.0-100.0); Monocytes # (auto) 0.3 10 ^3/uL (0-1.3); Monocytes % (auto) 5.6 % (0.0-12.0); Neutrophils # (auto) 3.9 10 ^3/uL (1.6-8.6); Neutrophils % (auto) 73.1 % (37.0-80.0); Nucleated Red Blood Cells % 0.2 %; Red Blood Cells 4.16 10^6/uL (4.0-5.20); Red Cell Distribution Width 16.8 % (11.8-14.3); White Blood Cell 5.3 10^3/uL (4.4-10.8)
[2023-07-17] MEDS: GABAPENTIN 300 MG CAP PO SCH ×2 (10:00→10:07)
[2023-07-17] MEDS: PRAMIPEXOLE DIHYDROCHLORIDE PO SCH (10:00)
[2023-07-17] MEDS: cefTRIAXone 1GM/50ML D5W 50 ML IV SCH (10:07)
[2023-07-17] MEDS: PANTOPRAZOLE 40 MG/10 ML VIAL INJ IV SCH (10:07)
[2023-07-17] MEDS: APIXABAN 5 MG TAB PO SCH (10:07)
== END 2023-07-17 16:40 | disposition left against medical advice (07) | DRG 314 ==
LOC: EDBD 17:03 → ER 17:03 → TELE 07-15 07:33 → TELE-EAST 07-15 22:44
PROVIDERS: ADMIT Nurse Practitioner; ATTEND Nurse Practitioner
DX: I95.9 Hypotension, unspecified (principal); J96.01 Acute respiratory failure with hypoxia; J44.1 Chronic obstructive pulmonary disease with (acute) exacerbation; N30.00 Acute cystitis without hematuria; D64.9 Anemia, unspecified; R79.89 Other specified abnormal findings of blood chemistry; E66.01 Morbid (severe) obesity due to excess calories; E86.0 Dehydration; E78.5 Hyperlipidemia, unspecified; Z53.29 Procedure and treatment not carried out because of patient's decision for other reasons; G62.9 Polyneuropathy, unspecified; I12.9 Hypertensive chronic kidney disease with stage 1 through stage 4 chronic kidney disease, or unspecified chronic kidney disease; I27.20 Pulmonary hypertension, unspecified; M06.9 Rheumatoid arthritis, unspecified; N18.9 Chronic kidney disease, unspecified; Z88.2 Allergy status to sulfonamides; Z79.01 Long term (current) use of anticoagulants; Z68.36 Body mass index [BMI] 36.0-36.9, adult; Z80.1 Family history of malignant neoplasm of trachea, bronchus and lung; Z85.118 Personal history of other malignant neoplasm of bronchus and lung; Z86.718 Personal history of other venous thrombosis and embolism; Z87.19 Personal history of other diseases of the digestive system; Z87.891 Personal history of nicotine dependence; Z90.710 Acquired absence of both cervix and uterus; Z90.49 Acquired absence of other specified parts of digestive tract
CPT/HCPCS: 36415; 70450; 71045; 78582; 80053; 81001; 83735; 84484; 85025; 87081; 93005; 93306; 94640; C9113; G0378; J0696; J1885; P9047